=== PATIENT | female | born 1980 | race African-American/Black ===

== ENCOUNTER 2016-04-18 19:11 | Emergency (ER) | payer OTHER ==
[~2016-04-18] VITALS: Ht 160 cm; Wt 52.2 kg
[~2016-04-18 19:11] MED LIST: ORTHO TRI-CYCLE1 TAB PO; PRENATAL1 TA1 PO; VICODIN 5/500 M1 TAB PO
--- NOTE | 2016-04-18 19:20 | NUR ---
Patient ambulated to bed 02.
--- NOTE | 2016-04-18 19:22 | NUR ---
38Y F BIB SELF C/O AB PAIN 8/10 WITH CONSTANT MIGRAINE X 2 DAYS . PT STATES EVERYTHING MAKES IT SENSITIVE FOR HER INCLUDING LIFE.PT HAS HX OF ENDOMETRIOSIS. PT C/O N/V/D; SKIN IS PINK/WARM/DRY; AAOX4 WITH EVEN AND STEADY GAIT; LUNGS CLEAR BL; HR EVEN AND REGULAR; PT DENIES ANY FEVER, CP, SOB, OR COUGH AT THIS TIME; PATIENT STATES PAIN OF 8/10 AT THIS TIME; VSS; PATIENT POSITIONED FOR COMFORT; HOB ELEVATED; BEDRAILS UP X2; BED DOWN. ER MD MADE AWARE OF PT STATUS.
[2016-04-18 19:23] VITALS: BP 128/90
[2016-04-18] MEDS ORDERED: ONDANSETRON 4 MG/2 ML VIAL IVP ONE (19:35)
[2016-04-18] MEDS ORDERED: HYDROmorphone 1 MG/ML AMP IVP ONE ×2 (19:35→20:30)
[2016-04-18] MEDS ORDERED: FAMOTIDINE 20 MG/2 ML VIAL IVP ONE (19:35)
--- NOTE | 2016-04-18 19:35 | NUR ---
Dr. Sawant evaluating patient at bedside.
[2016-04-18] MEDS: NACL 0.9% 1,000 ML IV SCH ×2 (20:02→20:03)
[2016-04-18] MEDS ORDERED: diphenhydrAMINE 50 MG/ML VIAL IVP ONE (20:30)
--- NOTE | 2016-04-18 21:54 | NUR ---
IV removed, catheter intact and site benign. Applied folded 4x4 gauze and tape to stop bleeding.
--- NOTE | 2016-04-18 21:54 | NUR ---
Patient discharged with v/s stable. Written and verbal after care instructions given and explained. Patient alert, oriented and verbalized understanding of instructions. Ambulatory with steady gait. All questions addressed prior to discharge. ID band removed. Patient advised to follow up with PMD. Rx of ZOFRAN ODT 4MG AND TYLENOLE #3 given. Patient educated on indication of medication including possible reaction and side effects. Opportunity to ask questions provided and answered.
[2016-04-18 21:55] VITALS: BP 122/87
== END 2016-04-18 21:54 | disposition home or self-care (01) ==
LOC: MED 19:11
DX: G43.901 Migraine, unspecified, not intractable, with status migrainosus (principal); N80.8 Other endometriosis; F17.200 Nicotine dependence, unspecified, uncomplicated; Z71.6 Tobacco abuse counseling; Z88.5 Allergy status to narcotic agent
CPT/HCPCS: 36415; 80053; 81001; 81025; 82150; 83690; 85025; 96361; 96374; 96375; 96376; 99285; J1170; J1200; J2405; J3490; J7030

== ENCOUNTER 2016-04-20 11:32 | Emergency (ER) | payer OTHER ==
[~2016-04-20] VITALS: Ht 160 cm; Wt 53.6 kg
[2016-04-20 11:39] VITALS: BP 134/78
--- NOTE | 2016-04-20 11:48 | NUR ---
Patient to bed 05.
--- NOTE | 2016-04-20 11:49 | NUR ---
35/F BIB SELF C/O NAUSEA,RIGHT LOWER ABDOMINAL PAIN & HEADACHE X 1 WEEK.PT DENIES VOMITING OR DIARRHEA; SKIN IS PINK/WARM/DRY; AAOX4 WITH EVEN AND STEADY GAIT; LUNGS CLEAR BL; HR EVEN AND REGULAR; PT DENIES ANY FEVER, CP, SOB, OR COUGH AT THIS TIME; PATIENT STATES PAIN OF 10/10 AT THIS TIME; VSS; PATIENT POSITIONED FOR COMFORT; HOB ELEVATED; BEDRAILS UP X2; BED DOWN. ER MD MADE AWARE OF PT STATUS.
--- NOTE | 2016-04-20 12:02 | NUR ---
Dr. Roberts evaluating patient at bedside.
[2016-04-20] MEDS ORDERED: NACL 0.9% 1,000 ML IV SCH (12:11)
[2016-04-20] MEDS ORDERED: KETOROLAC 30 MG/ML VIAL IVP ONE (12:15)
[2016-04-20] MEDS ORDERED: METOCLOPRAMIDE 10 MG/2 ML INJ VIAL IVP ONE (12:15)
[2016-04-20] MEDS ORDERED: diphenhydrAMINE 50 MG/ML VIAL IVP ONE (12:15)
[2016-04-20 12:26] LABS: BASOPHILS # (AUTO) 0.3 K/uL (0.00-0.22); BASOPHILS % (AUTO) 4.6 % (0.0-2.0); EOSINOPHILS # (AUTO) 0.1 K/uL (0-0.4); EOSINOPHILS % (AUTO) 1.1 % (0.0-4.0); HEMOGLOBIN 13.2 g/dL (12.0-16.0); LYMPHOCYTES # (AUTO) 3.1 K/uL (2.5-16.5); LYMPHOCYTES % (AUTO) 52.2 % (20.5-51.1); MEAN CORPUSCULAR HEMOGLOBIN 31 pg (27-31); MEAN CORPUSCULAR HGB CONC 33 g/dL (33-37); MEAN CORPUSCULAR VOLUME 94 fL (80-94); MONOCYTES # (AUTO) 0.3 K/uL (0.8-1.0); MONOCYTES % (AUTO) 5.3 % (1.7-9.3); NEUTROPHILS # (AUTO) 2.2 K/uL (1.8-7.7); NEUTROPHILS % (AUTO) 36.8 % (42.2-75.2); PLATELET COUNT (AUTO) 187 K/uL (140-450); RED BLOOD CELL COUNT(AUTO) 4.25 MIL/uL (4.20-5.40); RED CELL DISTRIBUTION WIDTH 12.8 % (11.6-13.7)
[2016-04-20] MEDS ORDERED: ONDANSETRON 4 MG/2 ML VIAL IVP ONE (12:30)
[2016-04-20 12:34] LABS: ANION GAP 10.1 (8-16); CALCIUM 8.1 mg/dL (8.5-10.1); CARBON DIOXIDE 29.2 mmol/L (21-32); CREATININE 0.9 mg/dL (0.6-1.3); POTASSIUM 3.3 mmol/L (3.5-5.1)
[2016-04-20 12:40] LABS: ALBUMIN 3.8 g/dL (3.4-5.0); TOTAL BILIRUBIN 0.7 mg/dL (0.0-1.0); TOTAL PROTEIN, SERUM 6.8 g/dL (6.4-8.2)
--- NOTE | 2016-04-20 13:25 | NUR ---
IV removed, catheter intact and site benign. Applied folded 4x4 gauze and tape to stop bleeding.
[2016-04-20 13:26] VITALS: BP 133/89
--- NOTE | 2016-04-20 13:26 | NUR ---
Patient discharged with v/s stable. Written and verbal after care instructions given and explained. Patient alert, oriented and verbalized understanding of instructions. Ambulatory with steady gait. All questions addressed prior to discharge. ID band removed. Patient advised to follow up with PMD. Rx of ZOFRAN & NORCO given. Patient educated on indication of medication including possible reaction and side effects. Opportunity to ask questions provided and answered.
== END 2016-04-20 13:26 | disposition home or self-care (01) ==
LOC: MED 11:32
DX: G89.29 Other chronic pain (principal); R10.31 Right lower quadrant pain; G43.909 Migraine, unspecified, not intractable, without status migrainosus; F17.210 Nicotine dependence, cigarettes, uncomplicated; Z71.6 Tobacco abuse counseling; Z90.710 Acquired absence of both cervix and uterus; Z88.5 Allergy status to narcotic agent
CPT/HCPCS: 36415; 80053; 81002; 81025; 83690; 85025; 96361; 96374; 96375; 99284; J1200; J1885; J2405; J2765; J7030

== ENCOUNTER 2016-05-21 00:41 | Emergency (ER) | payer OTHER ==
[~2016-05-21] VITALS: Ht 162.6 cm; Wt 53.6 kg
[2016-05-21 00:47] VITALS: BP 137/90
--- NOTE | 2016-05-21 00:55 | NUR ---
PATIENT AMBULATED TO ER BED 7.
--- NOTE | 2016-05-21 01:00 | NUR ---
Patient being evaluated by physician at bedside.
[2016-05-21] MEDS ORDERED: PROMETHAZINE 25 MG/ML VIAL IM ONE (01:05)
--- NOTE | 2016-05-21 01:11 | NUR ---
35Y/F PATIENT PRESENTS TO ED WITH C/O ABDOMINAL PAIN X 1 DAY . PT STATES PAIN STARTED YESTERDAY WITH FEELING NAUSEAS . DENIES DIARRHEA, HX. SVT ON MEDICATION; SKIN IS PINK/WARM/DRY; AAOX4 WITH EVEN AND STEADY GAIT; LUNGS CLEAR BL; HR EVEN AND REGULAR; PT DENIES ANY FEVER, CP, SOB, OR COUGH AT THIS TIME; PATIENT STATES PAIN OF 5/10 AT THIS TIME; VSS; PATIENT POSITIONED FOR COMFORT; HOB ELEVATED; BEDRAILS UP X2; BED DOWN. ER MD MADE AWARE OF PT STATUS.
--- NOTE | 2016-05-21 01:40 | NUR ---
Patient discharged with v/s stable. Written and verbal after care instructions given and explained. Patient verbalized understanding. Ambulatory with steady gait. All questions addressed prior to discharge. Advised to follow up with PMD.
[2016-05-21 02:07] VITALS: BP 141/79
== END 2016-05-21 01:40 | disposition home or self-care (01) ==
LOC: MED 00:41
DX: R11.0 Nausea (principal); R94.31 Abnormal electrocardiogram [ECG] [EKG]; Z86.79 Personal history of other diseases of the circulatory system; Z88.6 Allergy status to analgesic agent; Z88.8 Allergy status to other drugs, medicaments and biological substances; Z90.710 Acquired absence of both cervix and uterus
CPT/HCPCS: 81002; 81025; 93005; 96372; 99283; J2550

== ENCOUNTER 2016-07-08 13:56 | Emergency (ER) | payer SELFPAY ==
--- NOTE | 2016-07-08 14:00 | NUR ---
PT IN TRIAGE REQUESTING A PSYCHIATRIC EVALUATION FOR HAVING "BAD THOUGHTS OF HURTING HERSELF". KATHERYN Agee OFFICER JACIEL IN ER AT THE TIME AND INSTRUCTED WORKERS' COMPENSATION COMMISSIONER TO CALL DISPATCH HE WAS DEALING W/ANOTHER PT BEING PLACED ON 5150 HOLD. WORKERS' COMPENSATION COMMISSIONER EXPLAINED TO PT THAT POLICE WOULD BE CONTACTED AND EVALUATE HER TO DETERMINE IF A 5150 HOLD WAS APPROPRIATE, AND AN EVALUATION WOULD BE COMPLETED AT THAT TIME, TO WHICH PT STATED, "NO, I DON'T WANT THE POLICE INVOLVED AT ALL. I HAVE [employer] INSURANCE, I'LL GO THERE. I DON'T KNOW WHY I CAME HERE". PT THEN WALKED OUT THE DOOR AND GOT IN HER CAR. WORKERS' COMPENSATION COMMISSIONER THEN NOTIFIED OFFICER JACIEL THAT PT HAD WALKED OUT OF ER. OFFICER GRISSOM INSTRUCTED WORKERS' COMPENSATION COMMISSIONER TO FOLLOW PT AND INSTRUCT HER TO RETURN TO ER. WORKERS' COMPENSATION COMMISSIONER AND ANOTHER RN WENT OUT TO PARKING LOT, PT OBSERVED DRIVING OUT OF PARKING LOT. OFFICER GRISSOM NOTIFIED, DESCRIPTION OF PT'S VEHICLE GIVEN, HOSPITAL SECURITY INFORMED. OFFICER GRISSOM PROCEEDED TO PLACE A CALL TO DISPATCH AND REQUEST A WELFARE CHECK TO PT'S LISTED HOME ADDRESS.
--- NOTE | 2016-07-08 14:00 | NUR ---
PATIENT LEFT WITHOUT BEING SEEN BY DR. STEWART. NO FURTHER CARE PROVIDED FOR PATIENT.
== END 2016-07-08 14:00 | disposition left against medical advice (07) ==
LOC: MED 13:56
DX: R45.851 Suicidal ideations (principal); Z88.5 Allergy status to narcotic agent; Z88.8 Allergy status to other drugs, medicaments and biological substances
CPT/HCPCS: 99281

== ENCOUNTER 2016-11-27 08:24 | Emergency (ER) | payer OTHER ==
[~2016-11-27] VITALS: Ht 160 cm; Wt 50.8 kg
[2016-11-27 08:43] VITALS: BP 130/92
[2016-11-27] MEDS ORDERED: WARF-18 PO (08:47)
--- NOTE | 2016-11-27 08:47 | NUR ---
TO WAITING ROOM. NO AVIL. BED AT THIS TIME. NO DISTRESS
--- NOTE | 2016-11-27 11:55 | NUR ---
CALLED TO A BED, NO ANSWER
== END 2016-11-27 11:55 | disposition left against medical advice (07) ==
LOC: MED 08:24
DX: R10.9 Unspecified abdominal pain (principal); R11.0 Nausea; Z53.21 Procedure and treatment not carried out due to patient leaving prior to being seen by health care provider

== ENCOUNTER 2017-04-18 18:20 | Emergency (ER) | payer BC, OTHER ==
[~2017-04-18] VITALS: Ht 160 cm; Wt 50.9 kg
[~2017-04-18 18:20] MED LIST changes: -ORTHO TRI-CYCLE1 TAB PO; -PRENATAL1 TA1 PO; -VICODIN 5/500 M1 TAB PO; +WARF-18 PO
[2017-04-18 18:39] VITALS: BP 138/92
--- NOTE | 2017-04-18 18:57 | NUR ---
PT AMBULATED TO BED10
--- NOTE | 2017-04-18 18:59 | NUR ---
36/F BIB SELF C/O HEAD ACHE, LT NECK PAIN AFTER LANDING [facility] FROM [facility]; STROKE SURGERY LAST SUNDAY. HX; STROKE SURGERY. RX; PLAVIX, LEPITOR, ASPIRIN, METROPOLOL.DENIES N/V/D; SKIN IS PINK/WARM/DRY; AAOX4 WITH EVEN AND STEADY GAIT; LUNGS CLEAR BL; HR EVEN AND REGULAR; PT DENIES ANY FEVER, CP, SOB, OR COUGH AT THIS TIME; PATIENT STATES PAIN OF 10/10 AT THIS TIME; VSS; PATIENT POSITIONED FOR COMFORT; HOB ELEVATED; BEDRAILS UP X2; BED DOWN. ER MADE AWARE OF PT STATUS. Addendum: 04/18/17 at 1913 by [employer] [place] PT CAME WITH MOTHER
--- NOTE | 2017-04-18 19:06 | NUR ---
PT RETUERNED FROM CT VIA W/C ACCOMPANIED BY DIRECTOR OF DIGITAL PLATFORMS.
--- NOTE | 2017-04-18 19:10 | NUR ---
Report recieved from Bo MCADAMS
--- NOTE | 2017-04-18 19:19 | NUR ---
Lizzie echeverria in [facility] - 04/18/17 at 1921 by [employer] Pt report given to . Transfer of care at this time.
--- NOTE | 2017-04-18 19:21 | NUR ---
Pt report given to PEMA ALBRECHT . Transfer of care at this time.
[2017-04-18] MEDS ORDERED: diphenhydrAMINE 50 MG/ML VIAL IVP ONE (19:50)
[2017-04-18] MEDS ORDERED: NACL 0.9% 1,000 ML IV ONE (19:50)
[2017-04-18] MEDS ORDERED: PROCHLORPERAZINE 10 MG/2 ML VIAL IVP ONE (19:50)
[2017-04-18 19:57] LABS: BASOPHILS # (AUTO) 0.5 K/uL (0.00-0.22); EOSINOPHILS # (AUTO) 0.1 K/uL (0-0.4); EOSINOPHILS % (AUTO) 1.7 % (0.0-4.0); HEMATOCRIT 40.1 % (36-48); LYMPHOCYTES # (AUTO) 1.9 K/uL (2.5-16.5); LYMPHOCYTES % (AUTO) 27.2 % (20.5-51.1); MEAN CORPUSCULAR HEMOGLOBIN 30 pg (27-31); MEAN CORPUSCULAR HGB CONC 32 g/dL (33-37); MEAN CORPUSCULAR VOLUME 92 fL (80-94); MONOCYTES # (AUTO) 0.5 K/uL (0.8-1.0); MONOCYTES % (AUTO) 6.8 % (1.7-9.3); NEUTROPHILS # (AUTO) 3.9 K/uL (1.8-7.7); NEUTROPHILS % (AUTO) 56.5 % (42.2-75.2); PLATELET COUNT (AUTO) 337 K/uL (140-450); RED BLOOD CELL COUNT(AUTO) 4.37 MIL/uL (4.20-5.40); RED CELL DISTRIBUTION WIDTH 12.9 % (11.6-13.7); WHITE BLOOD COUNT (AUTO) 6.9 K/uL (4.8-10.8)
[2017-04-18 20:08] LABS: ANION GAP 14.7 (8-16); CREATININE 0.9 mg/dL (0.6-1.3); POTASSIUM 4.7 mmol/L (3.5-5.1)
[2017-04-18 20:15] LABS: TOTAL BILIRUBIN 0.6 mg/dL (0.0-1.0)
[2017-04-18 20:31] LABS: PROTHROMBIN TIME 10.6 secs (10.8-13.4)
[2017-04-18 20:33] LABS: BASOPHILS % (AUTO) 7.8 % (0.0-2.0)
[2017-04-18 21:05] VITALS: BP 137/95
--- NOTE | 2017-04-18 21:05 | NUR ---
Patient discharged with v/s stable and without pain. Written and verbal after care instructions given and explained. Patient verbalized understanding. Ambulatory with steady gait. All questions addressed prior to discharge. Advised to follow up with PMD.
--- NOTE | 2017-04-21 08:34 | NUR ---
Late Entry from 04/18/17: 1L of NS @ 999ml/hr Start time: 2003 End time: 2049
== END 2017-04-18 21:05 | disposition home or self-care (01) ==
LOC: MED 18:20
DX: R51 Headache (principal); M79.89 Other specified soft tissue disorders; E78.5 Hyperlipidemia, unspecified; Z86.73 Personal history of transient ischemic attack (TIA), and cerebral infarction without residual deficits; I10 Essential (primary) hypertension; Z88.5 Allergy status to narcotic agent
CPT/HCPCS: 36415; 70450; 80053; 85025; 85610; 85730; 96361; 96374; 96375; 99285; J0780; J1200; J7030

== ENCOUNTER 2019-05-23 16:10 | Emergency (ER) | payer BC, OTHER ==
[~2019-05-23] VITALS: Ht 162.6 cm; Wt 63.0 kg
[2019-05-23 16:21] VITALS: BP 143/102
[2019-05-23 17:25] LABS: BASOPHILS # (AUTO) 0.1 K/uL (0.00-0.22); BASOPHILS % (AUTO) 1.1 % (0.0-2.0); EOSINOPHILS # (AUTO) 0.1 K/uL (0-0.4); EOSINOPHILS % (AUTO) 0.9 % (0.0-4.0); HEMATOCRIT 41.8 % (36-48); HEMOGLOBIN 13.4 g/dL (12.0-16.0); LYMPHOCYTES # (AUTO) 2.1 K/uL (2.5-16.5); LYMPHOCYTES % (AUTO) 33.1 % (20.5-51.1); MEAN CORPUSCULAR HEMOGLOBIN 29 pg (27-31); MEAN CORPUSCULAR HGB CONC 32 g/dL (33-37); MEAN CORPUSCULAR VOLUME 90.8 fL (80-94); MONOCYTES # (AUTO) 0.5 K/uL (0.8-1.0); MONOCYTES % (AUTO) 8.7 % (1.7-9.3); NEUTROPHILS # (AUTO) 3.5 K/uL (1.8-7.7); NEUTROPHILS % (AUTO) 56.2 % (42.2-75.2); PLATELET COUNT (AUTO) 225 K/uL (140-450); RED CELL DISTRIBUTION WIDTH 14.9 % (11.6-13.7); WHITE BLOOD COUNT (AUTO) 6.2 K/uL (4.8-10.8)
[2019-05-23 17:41] LABS: ALBUMIN 3.9 g/dL (3.4-5.0); ANION GAP 13.2 (8-16); ASPARTATE AMINOTRANSFERASE 20 U/L (15-37); CHLORIDE 104 mmol/L (98-107); CREATININE 1.1 mg/dL (0.6-1.3); GFR ARICAN-AMERICAN 71 mL/min (>90); GLUCOSE 95 mg/dL (74-106); POTASSIUM 3.2 mmol/L (3.5-5.1); SODIUM SERUM 141 mmol/L (136-145); TOTAL BILIRUBIN 0.6 mg/dL (0.0-1.0); UREA NITROGEN, BLOOD 5 mg/dL (7-18)
[2019-05-23 17:42] LABS: ACETAMINOPHEN < 0.5 ug/ml (10-30); SALICYLATE < 2.8 mg/dL (2.8-20.0)
== END 2019-05-23 17:38 | disposition short-term general hospital (02) ==
LOC: MED 16:10
DX: I63.9 Cerebral infarction, unspecified (principal); E78.5 Hyperlipidemia, unspecified; I10 Essential (primary) hypertension; Z98.890 Other specified postprocedural states; Z79.899 Other long term (current) drug therapy; Z88.8 Allergy status to other drugs, medicaments and biological substances; Z88.5 Allergy status to narcotic agent; Z86.73 Personal history of transient ischemic attack (TIA), and cerebral infarction without residual deficits
CPT/HCPCS: 36415; 70450; 80053; 85025; 99285; G0480; G0482

== ENCOUNTER 2019-06-06 15:03 | Emergency (ER) | payer OTHER ==
[~2019-06-06] VITALS: Ht 160 cm; Wt 61.2 kg
[2019-06-06 15:11] VITALS: BP 147/104
[2019-06-06] MEDS ORDERED: NACL 0.9% 1,000 ML IV SCH (15:53)
[2019-06-06] MEDS ORDERED: MORPHINE SULFATE 4 MG/ML SYR IVP ONE (15:55)
[2019-06-06] MEDS ORDERED: ONDANSETRON 4 MG/2 ML VIAL IVP ONE (15:55)
[2019-06-06 16:27] LABS: BASOPHILS # (AUTO) 0.1 K/uL (0.00-0.22); BASOPHILS % (AUTO) 1.8 % (0.0-2.0); EOSINOPHILS # (AUTO) 0.1 K/uL (0-0.4); EOSINOPHILS % (AUTO) 0.9 % (0.0-4.0); HEMATOCRIT 39.8 % (36-48); LYMPHOCYTES # (AUTO) 1.2 K/uL (2.5-16.5); LYMPHOCYTES % (AUTO) 20.9 % (20.5-51.1); MEAN CORPUSCULAR HEMOGLOBIN 30 pg (27-31); MEAN CORPUSCULAR HGB CONC 33 g/dL (33-37); MEAN CORPUSCULAR VOLUME 90.2 fL (80-94); MONOCYTES # (AUTO) 0.4 K/uL (0.8-1.0); MONOCYTES % (AUTO) 6.3 % (1.7-9.3); NEUTROPHILS # (AUTO) 4.1 K/uL (1.8-7.7); NEUTROPHILS % (AUTO) 70.1 % (42.2-75.2); PLATELET COUNT (AUTO) 235 K/uL (140-450); RED BLOOD CELL COUNT(AUTO) 4.41 MIL/uL (4.20-5.40); RED CELL DISTRIBUTION WIDTH 15.7 % (11.6-13.7); WHITE BLOOD COUNT (AUTO) 5.9 K/uL (4.8-10.8)
[2019-06-06 16:42] LABS: ALBUMIN 3.7 g/dL (3.4-5.0); ANION GAP 15.3 (8-16); CARBON DIOXIDE 24.3 mmol/L (21-32); CREATININE 1.1 mg/dL (0.6-1.3); POTASSIUM 3.6 mmol/L (3.5-5.1); TOTAL BILIRUBIN 0.5 mg/dL (0.0-1.0)
[2019-06-06] MEDS ORDERED: MORPHINE SULFATE 10 MG/ML VIAL IVP ONE (16:50)
[2019-06-06] MEDS ORDERED: NACL 0.9% 1,000 ML IV ONE (16:50)
[2019-06-06] MEDS ORDERED: PROMETHAZINE 25 MG/ML VIAL IVP ONE (16:50)
[2019-06-06 18:32] VITALS: BP 135/98
[2019-06-06 18:33] LABS: APPEARANCE,URINE HAZY (CLEAR); BILIRUBIN,URINE NEGATIVE (NEGATIVE); BLOOD, URINE NEGATIVE (NEGATIVE); COLOR,URINE YELLOW (YELLOW); LEUKOCYTE ESTERASE ,URINE NEGATIVE (NEGATIVE); NITRITE, URINE NEGATIVE (NEGATIVE); UGLUCOSE NEGATIVE (NEGATIVE)
== END 2019-06-06 18:33 | disposition home or self-care (01) ==
LOC: MED 15:03
DX: R10.9 Unspecified abdominal pain (principal); G43.909 Migraine, unspecified, not intractable, without status migrainosus; R11.2 Nausea with vomiting, unspecified; E78.5 Hyperlipidemia, unspecified; I10 Essential (primary) hypertension; Z88.6 Allergy status to analgesic agent; Z88.8 Allergy status to other drugs, medicaments and biological substances; Z86.73 Personal history of transient ischemic attack (TIA), and cerebral infarction without residual deficits; Z90.710 Acquired absence of both cervix and uterus
CPT/HCPCS: 36415; 74177; 80053; 81003; 82150; 83605; 83690; 85025; 87040; 96361; 96374; 96375; 96376; 99285; J2270; J2405; J2550; Q9967; J7030

== ENCOUNTER 2019-06-21 18:43 | Inpatient (IN) | payer OTHER ==
[~2019-06-21] VITALS: Ht 160 cm; Wt 63.0 kg
[2019-06-21 18:46] VITALS: BP 151/101
[2019-06-21] MEDS ORDERED: ONDANSETRON 4 MG/2 ML VIAL IVP ONE (19:15)
[2019-06-21] MEDS ORDERED: fentaNYL 0.05 MG/ML VIAL IVP ONE (19:15)
[2019-06-21] MEDS ORDERED: NACL 0.9% 1,000 ML IV ONE ×2 (19:15→21:45)
[2019-06-21 20:12] LABS: BASOPHILS % (AUTO) 0.5 % (0.0-2.0); EOSINOPHILS # (AUTO) 0.1 K/uL (0-0.4); HEMATOCRIT 44.2 % (36-48); HEMOGLOBIN 14.3 g/dL (12.0-16.0); LYMPHOCYTES # (AUTO) 1.9 K/uL (2.5-16.5); LYMPHOCYTES % (AUTO) 31.6 % (20.5-51.1); MEAN CORPUSCULAR HEMOGLOBIN 29 pg (27-31); MEAN CORPUSCULAR HGB CONC 32 g/dL (33-37); MEAN CORPUSCULAR VOLUME 90.7 fL (80-94); MONOCYTES # (AUTO) 0.6 K/uL (0.8-1.0); NEUTROPHILS # (AUTO) 3.4 K/uL (1.8-7.7); NEUTROPHILS % (AUTO) 56.9 % (42.2-75.2); PLATELET COUNT (AUTO) 211 K/uL (140-450); RED BLOOD CELL COUNT(AUTO) 4.87 MIL/uL (4.20-5.40); RED CELL DISTRIBUTION WIDTH 15.3 % (11.6-13.7)
[2019-06-21 20:27] LABS: ALBUMIN 3.9 g/dL (3.4-5.0); CARBON DIOXIDE 27.2 mmol/L (21-32); CREATININE 1.2 mg/dL (0.6-1.3); POTASSIUM 4.2 mmol/L (3.5-5.1); TOTAL BILIRUBIN 0.9 mg/dL (0.0-1.0)
[2019-06-21] MEDS ORDERED: MORPHINE SULFATE 4 MG/ML SYR IVP ONE (21:20)
[2019-06-21] MEDS ORDERED: DOCUSATE SODIUM 100 MG GELCAP PO PRN (21:50)
[2019-06-21] MEDS ORDERED: ACETAMINOPHEN 325 MG TAB PO PRN (21:50)
[2019-06-21] MEDS ORDERED: ASPI-1884 PO (22:10)
[2019-06-21] MEDS ORDERED: CLOP75TA26 PO (22:10)
[2019-06-21] MEDS ORDERED: METO25TA PO (22:10)
[2019-06-21] MEDS ORDERED: ATOR10TA PO (22:10)
[2019-06-21 22:20] LABS: BARBITURATE, URINE NEGATIVE ng/ml (NEG <=200); BENZODIAZEPINE, URINE POSITIVE ng/mL (NEG <=200); CANNABINOID, URINE NEGATIVE ng/mL (NEG <=50); COCAINE, URINE NEGATIVE ng/mL (NEG <=300)
[2019-06-21 22:21] LABS: OPIATE, URINE POSITIVE ng/mL (NEG <=2000); PHENCYCLIDINE SCREEN,URINE NEGATIVE ng/mL (NEG <=25)
[2019-06-21 22:45] LABS: FREE T4 (FREE THYROXINE) 1.22 ng/dL (0.76-1.46); MAGNESIUM 1.8 mg/dL (1.8-2.4); PHOSPHORUS 3.8 mg/dL (2.5-4.9); THYROID STIMULATING HORMONE 0.5 uIU/mL (0.34-3.74)
[2019-06-21] MEDS: NACL 0.9% 1,000 ML IV SCH (22:58)
[2019-06-21] MEDS ORDERED: HYDROcodone/APAP 5/325 MG 1 TAB TAB PO PRN (23:15)
[2019-06-21] MEDS ORDERED: PROMETHAZINE 25 MG TAB PO PRN (23:20)
[2019-06-21] MEDS: METOPROLOL 25 MG TAB PO SCH (23:32)
[2019-06-21] MEDS ORDERED: MORPHINE SULFATE 2 MG/ML SYR IVP SCH (23:55)
[2019-06-21] MEDS ORDERED: PROMETHAZINE 25 MG/ML VIAL IM SCH (23:55)
[2019-06-22] VITALS: BP 133/89
[2019-06-22] MEDS: ONDANSETRON 4 MG/2 ML VIAL IM/IVP PRN (04:17)
[2019-06-22] MEDS ORDERED: MORPHINE SULFATE 2 MG/ML SYR IVP SCH ×2 (04:35→09:00)
[2019-06-22] MEDS ORDERED: diphenhydrAMINE 50 MG/ML VIAL IVP SCH ×2 (04:45→13:00)
[2019-06-22 07:18] LABS: ANION GAP 13.9 (8-16); CARBON DIOXIDE 25.1 mmol/L (21-32); CREATININE 0.9 mg/dL (0.6-1.3)
[2019-06-22 07:26] LABS: MAGNESIUM 1.6 mg/dL (1.8-2.4); PHOSPHORUS 3.9 mg/dL (2.5-4.9)
[2019-06-22 07:45] LABS: BASOPHILS % (AUTO) 0.6 % (0.0-2.0); EOSINOPHILS % (AUTO) 0.6 % (0.0-4.0); HEMATOCRIT 40.5 % (36-48); HEMOGLOBIN 13.1 g/dL (12.0-16.0); LYMPHOCYTES # (AUTO) 1.4 K/uL (2.5-16.5); MEAN CORPUSCULAR HEMOGLOBIN 29 pg (27-31); MEAN CORPUSCULAR HGB CONC 32 g/dL (33-37); MEAN CORPUSCULAR VOLUME 90.6 fL (80-94); MONOCYTES # (AUTO) 0.5 K/uL (0.8-1.0); NEUTROPHILS # (AUTO) 2.6 K/uL (1.8-7.7); NEUTROPHILS % (AUTO) 56.8 % (42.2-75.2); PLATELET COUNT (AUTO) 238 K/uL (140-450); RED BLOOD CELL COUNT(AUTO) 4.48 MIL/uL (4.20-5.40); RED CELL DISTRIBUTION WIDTH 15.1 % (11.6-13.7); WHITE BLOOD COUNT (AUTO) 4.5 K/uL (4.8-10.8)
[2019-06-22 07:55] LABS: CHOL/HDL RATIO 2.4 (1-4.5)
[2019-06-22 08:00] VITALS: BP 117/82
[2019-06-22] MEDS: ASPIRIN 81 MG TAB.CHEW PO SCH (09:10)
[2019-06-22] MEDS: METOPROLOL 25 MG TAB PO SCH ×2 (09:11→20:22)
[2019-06-22] MEDS: ATORVASTATIN 20 MG TAB PO SCH (09:11)
[2019-06-22] MEDS: CLOPIDOGREL 75 MG TAB PO SCH (09:11)
[2019-06-22 12:00] VITALS: BP 122/79
[2019-06-22] MEDS: busPIRone 5 MG TAB PO SCH ×2 (13:03→16:38)
[2019-06-22 16:00] VITALS: BP 115/74
[2019-06-22] MEDS: CYCLOBENZAPRINE 10 MG TAB PO PRN (16:38)
[2019-06-22] MEDS ORDERED: CRUSHER, PILL MC ONE (20:16)
[2019-06-22] MEDS: NACL 0.9% 1,000 ML IV SCH (21:38)
[2019-06-22] MEDS ORDERED: MELATONIN 3 MG TAB PO PRN (21:45)
[2019-06-22] MEDS ORDERED: ZOLPIDEM 10 MG TAB PO SCH (21:45)
[2019-06-23] VITALS: BP 110/62
[2019-06-23] MEDS ORDERED: APAP/BUTAL/CAFF 325/50/40 MG 1 TAB PO PRN (06:00)
[2019-06-23 06:10] LABS: ANION GAP 11.7 (8-16); BASOPHILS % (AUTO) 0.9 % (0.0-2.0); CARBON DIOXIDE 26.5 mmol/L (21-32); CREATININE 1.1 mg/dL (0.6-1.3); EOSINOPHILS # (AUTO) 0.1 K/uL (0-0.4); EOSINOPHILS % (AUTO) 2.6 % (0.0-4.0); HEMATOCRIT 37.7 % (36-48); HEMOGLOBIN 12.2 g/dL (12.0-16.0); LYMPHOCYTES # (AUTO) 1.5 K/uL (2.5-16.5); LYMPHOCYTES % (AUTO) 52.2 % (20.5-51.1); MEAN CORPUSCULAR HEMOGLOBIN 30 pg (27-31); MEAN CORPUSCULAR HGB CONC 32 g/dL (33-37); MEAN CORPUSCULAR VOLUME 91.4 fL (80-94); MONOCYTES # (AUTO) 0.3 K/uL (0.8-1.0); MONOCYTES % (AUTO) 11.7 % (1.7-9.3); NEUTROPHILS # (AUTO) 0.9 K/uL (1.8-7.7); NEUTROPHILS % (AUTO) 32.6 % (42.2-75.2); PLATELET COUNT (AUTO) 194 K/uL (140-450); POTASSIUM 4.2 mmol/L (3.5-5.1); RED BLOOD CELL COUNT(AUTO) 4.13 MIL/uL (4.20-5.40); RED CELL DISTRIBUTION WIDTH 14.8 % (11.6-13.7); WHITE BLOOD COUNT (AUTO) 2.8 K/uL (4.8-10.8)
[2019-06-23 06:12] LABS: MAGNESIUM 1.7 mg/dL (1.8-2.4); PHOSPHORUS 3.6 mg/dL (2.5-4.9)
[2019-06-23] MEDS: NACL 0.9% 1,000 ML IV SCH (06:31)
[2019-06-23 08:00] VITALS: BP 117/80
[2019-06-23] MEDS: ONDANSETRON 4 MG/2 ML VIAL IM/IVP PRN (08:38)
[2019-06-23] MEDS: METOPROLOL 25 MG TAB PO SCH (09:00)
[2019-06-23] MEDS: ATORVASTATIN 20 MG TAB PO SCH (09:00)
[2019-06-23] MEDS: busPIRone 5 MG TAB PO SCH ×2 (09:00→13:00)
[2019-06-23] MEDS: ASPIRIN 81 MG TAB.CHEW PO SCH (09:00)
[2019-06-23] MEDS: CLOPIDOGREL 75 MG TAB PO SCH (09:00)
[2019-06-23] MEDS ORDERED: MAGNESIUM OXIDE 400 MG TAB PO SCH (12:00)
[2019-06-23] MEDS ORDERED: LORazepam 2 MG/ML VIAL IM/IVP PRN (12:10)
[2019-06-23] MEDS: CYCLOBENZAPRINE 10 MG TAB PO PRN (12:31)
[2019-06-23] MEDS ORDERED: TOPIRAMATE 25 MG TAB PO SCH (12:50)
[2019-06-23] MEDS ORDERED: TOP25 PO (13:49)
== END 2019-06-23 14:45 | disposition home or self-care (01) | DRG 69 ==
LOC: MED 18:43 → MTU 21:53
PROVIDERS: ADMIT General Practice; ATTEND General Practice
DX: G45.9 Transient cerebral ischemic attack, unspecified (principal); G90.8 Other disorders of autonomic nervous system; I10 Essential (primary) hypertension; Z86.73 Personal history of transient ischemic attack (TIA), and cerebral infarction without residual deficits; Z86.718 Personal history of other venous thrombosis and embolism; Z88.8 Allergy status to other drugs, medicaments and biological substances; E78.5 Hyperlipidemia, unspecified; R00.0 Tachycardia, unspecified; Z90.710 Acquired absence of both cervix and uterus; Z87.891 Personal history of nicotine dependence; F41.9 Anxiety disorder, unspecified
CPT/HCPCS: 36415; 70450; 71045; 80048; 80053; 80305; 81025; 82140; 83036; 83605; 83690; 83735; 83880; 84100; 84134; 84439; 84443; 84484; 85025; 85610; 85651; 85730; 86886; 86900; 86901; 87040; 87081; 92610; 93005; 93880; 93970; 96361; 96374; 96375; 97116; 97161-GP; 99285; G0482; J1200; J1644; J2060; J2270; J2405; J2550; J3010; J7030; Q0092; Q0169; Q9967